=== PATIENT | male | born 1980 | race Caucasian/White ===

== ENCOUNTER 2017-05-11 17:30 | Emergency (ER) | payer MEDICAID ==
[~2017-05-11] VITALS: Ht 188 cm; Wt 69.0 kg
[~2017-05-11 17:30] MED LIST: ACETAMINOPHEN325 M1 PO; BACTRIM DS TAB1 EACH PO; BENZTROPINE ME0.5 MG PO; CEPHALEXIN 500500 M3 PO; CLEOCIN HCL150 MG PO; COUMADIN 2 MG TA2 M1 PO; DESYREL100 MG PO; HALDOL PO; HALOPERIDOL 5 MG5 M1 PO; IBUPROFEN 800800 M1 PO; LOXAPINE5 MG PO; LUNESTA2 MG PO; NAPROSYN500 MG PO; XANAX1 MG PO; ZOLOFT50 MG PO; ZYPREXA 5 MG TAB5 MG PO; ZYPREXA PO
[2017-05-11] MEDS ORDERED: TRAZODONE HCL100 MG PO (17:44)
[2017-05-11] MEDS ORDERED: BACTRIM DS TAB1 EAC1 PO (18:00)
[2017-05-11] MEDS ORDERED: ULTRAM 50MG TAB50 MG PO (18:00)
[2017-05-11 18:12] VITALS: BP 106/63
== END 2017-05-11 18:14 | disposition home or self-care (01) ==
LOC: M.ERS 17:30
DX: L02.31 Cutaneous abscess of buttock (principal); F20.9 Schizophrenia, unspecified; F32.9 Major depressive disorder, single episode, unspecified; G89.29 Other chronic pain; M25.561 Pain in right knee; F17.200 Nicotine dependence, unspecified, uncomplicated; Z86.718 Personal history of other venous thrombosis and embolism; Z88.0 Allergy status to penicillin; Z88.8 Allergy status to other drugs, medicaments and biological substances